=== PATIENT | male | born 1960 | race African-American/Black ===

== ENCOUNTER 2016-10-31 15:21 | Day surgery (SDC) | payer BC ==
[~2016-10-31] VITALS: Ht 185.4 cm; Wt 94.8 kg
[2016-10-31 15:56] VITALS: Ht 185.4 cm; Wt 94.8 kg
[2016-10-31] MEDS ORDERED: ATOR10TA65 PO (16:05)
[2016-10-31] MEDS ORDERED: BENA10TA48 PO (16:05)
[2016-10-31 16:16] VITALS: BP 151/99; PULSE 58; RESP 20
--- NOTE | 2016-10-31 17:38 | GILP ---
DATE OF PROCEDURE: 10/31/2016 NAME OF PROCEDURE: Colonoscopy. SURGEON: Makenzie Almodovar MD PREOPERATIVE DIAGNOSIS: Screening colonoscopy. POSTOPERATIVE DIAGNOSES 1. Colonoscopy all the way to the cecum. 2. Internal hemorrhoids. 3. No colon neoplasm was identified. INDICATION FOR THE PROCEDURE: Mr. Sourav Jacome is a 56-year-old male patient who was scheduled fo r screening colonoscopy. The procedure and possible complications are well explained to the patient. The patient understood and consented to the procedure. DESCRIPTION OF PROCEDURE: Under the influence of anesthesia, the colonoscope was carefully introduc ed in the rectum and under direct vision, it was advanced all the way to the cecum. FINDINGS: The patient had internal hemorrhoids. No colon neoplasm was identified. He tolerated the procedure very well and there was no complication from the procedure. At the end o f the procedure, he was awake with stable vital signs and he was discharged home to the care of his family. IMPRESSION: 1. Colonoscopy all the way to the cecum. 2. Internal hemorrhoids. 3. No colon neoplasm was identified. PLAN: Next screening colonoscopy in 10 years. Dictated By: MAKENZIE JIN/JAN Conf#: [id number] DID#: [id number]
[2016-10-31 17:43] VITALS: BP 135/78; RESP 20
== END 2016-10-31 18:50 | disposition home or self-care (01) ==
LOC: GIL 15:21
PROVIDERS: ATTEND Internal Medicine Gastroenterology
DX: Z12.11 Encounter for screening for malignant neoplasm of colon (principal); K64.8 Other hemorrhoids